=== PATIENT | male | born 1990 | race Two or more races ===

== ENCOUNTER → 2024-11-30 | Outpatient (CLI) | payer MEDICAID, SELFPAY ==
--- NOTE | 2024-11-30 10:27 | XR_ITS ---
Examination: Bilateral wrists 6 views TECHNIQUE: AP oblique lateral each wrist total 6 views Exam date and time: November 30, 2024 1058 hours INDICATIONS: Bilateral wrist pain and numbness beginning 2 months ago. FINDINGS: Mild osteopenia Early bilateral osteoarthritis first carpometacarpal joints No erosive arthritis involving either wrist No cortical bone destruction No avascular necrosis Small liver calcification distal to the right ulna There is possible bilateral rotation of the lunate relative to the navicular in both wrists IMPRESSION: There is possible bilateral rotation of the lunate relative to the navicular in both wrists, clinical correlation advised, consider CT examination bilateral venous follow-up as clinically warranted
--- NOTE | 2024-11-30 10:27 | XR_ITS ---
Examination: Bilateral hands, 6 views. Technique: AP, Oblique, Lateral each hand total 6 views Date and time of exam: November 30, 2024 1050 hours INDICATIONS: Bilateral hand pain and numbness beginning 2 months ago. Findings: Mild juxta-articular bone demineralization No fracture or dislocation involving either hand Early osteoarthritis distal interphalangeal joints second through fifth digits and interphalangeal joints first digit and first carpometacarpal joints No erosive arthritis No cortical bone obstruction No opaque foreign bodies IMPRESSION: Early osteoarthritis bilaterally
== END | disposition home or self-care (01) ==
LOC: CDIM 10:19
PROVIDERS: PCP Nurse Practitioner
DX: M25.532 Pain in left wrist (principal); M25.531 Pain in right wrist; M19.042 Primary osteoarthritis, left hand; M19.041 Primary osteoarthritis, right hand
CPT/HCPCS: 73110; 73130